=== PATIENT | male | born 1995 | race Caucasian/White ===

== ENCOUNTER 2018-07-14 21:15 | Emergency (ER) | payer OTHER, SELFPAY ==
[2018-07-14 21:18] VITALS: BP 143/81; PULSE 79; RESP 16; TEMP 36.6; O2SAT 99; BMI 31.1
--- NOTE | 2018-07-14 21:23 | ED_ITS ---
HPI - Ear Problem General Chief complaint: Ear Stated complaint: RIGHT EAR PAIN WITH JAW PAIN Time Seen by Provider: 07/14/18 21:22 Source: patient Mode of arrival: ambulatory Limitations: no limitations History of Present Illness HPI Narrative: Otherwise healthy 23-year-old male here for evaluation approximately 24-36 hr of right-sided ear pain, he states that it is ?popping? also has a sore throat and sinus congestion and also pain in the right side of his neck. No cough. No problems breathing. No skin changes. Has not tried anything for this prior to arrival Related Data Previous Rx's Medication Instructions Recorded azithromycin See Label Instructions .ROUTE 07/14/18 .COMPLEX #6 tab Allergies Allergy/AdvReac Type Severity Reaction Status Date / Time No Known Drug Allergies Allergy Verified 07/14/18 21:22 Review of Systems Constitutional Denies fever(s) and Denies headache(s) Eyes Denies change in vision ENT Ears, Nose, Mouth, and Throat: Denies dental pain, Denies vertigo, Denies dizziness, Denies ear discharge, Reports otalgia, Denies facial pain, Denies headache(s), Denies neck mass, Reports neck pain and Reports sore throat Cardiovascular Denies chest pain and Denies dyspnea Respiratory Denies dyspnea Musculoskeletal Denies myalgias, Denies arthralgias and Reports neck pain Integumentary/Breasts Denies rash Neurologic Denies vertigo, Denies dizziness and Denies headache(s) PFSH Medical History Healthy adult (Acute) Surgical History No pertinent past surgical history (Acute) Social History marital status: Smoking Status: Never smoker Exam Initial Vital Signs Initial Vital Signs: Vital Signs Temperature 97.8 F 07/14/18 21:18 Pulse Rate 79 07/14/18 21:18 Respiratory Rate 16 07/14/18 21:18 Blood Pressure 143/81 H 07/14/18 21:18 Pulse Oximetry 99 07/14/18 21:18 Const General: cooperative, healthy appearing, comfortable, well developed, well groomed and No acute distress Orientation: alert and oriented x3 HENMT Head: normal to inspection and normocephalic Ears: TM normal on the left and TM abnormal (Right) bulging, erythematous, with fluid behind the TM and with loss of landmarks Nose: external nose normal Face and sinus: sinuses nontender Mouth: oral mucosae normal, oropharynx normal, moist mucous membranes and No trismus Teeth and gingiva: dentition normal Throat: posterior oropharynx normal Neck Lymphatic: No lymphedema and No lymphadenopathy Resp Effort & Inspection: normal respiratory effort Auscultation: clear to auscultation bilaterally Cardio Rate: regular rate Rhythm: regular rhythm Skin Rashes: no rashes Neuro General: alert, awake and oriented x3 Extrem General: normal to inspection and capillary refill normal Psych Appearance: grossly normal and well kempt Course Vital Signs - 8 hr 07/14/18 21:18 Temperature 97.8 F Pulse Rate 79 Respiratory Rate 16 Blood Pressure 143/81 H Pulse Oximetry 99 Medical Decision Making MDM Narrative Medical decision making narrative: Patient nontoxic appearing. Left tympanic membrane unremarkable right. Membrane is consistent with acute otitis media. I do suspect this is related to his other upper respiratory infection like symptoms. We did discuss the importance of using decongestants. Will give a prescription for antibiotics but he was instructed to hold on this for the next 24-48 hours and only started of his symptoms do not improve or worsen. He expressed understanding and agreement this plan. Discharge Plan Departure Patient Disposition: Home Clinical Impression: Otitis media, Upper respiratory infection Discharge Date/Time: 07/14/18 21:55 Interventions: ED Discharge Assessment Last Done: 07/14/18 21:54 Instructions: Middle Ear Infection, DI for Viral Upper Respiratory Infection - - Adult Activity Restrictions/Additional Instructions: I do recommend that you start taking a decongestant such as Claritin or Riya or Zyrtec like we discussed. Also recommend you start a nasal spray such as Flonase for Nasonex. All of these you can buy [id number]. You can also take Afrin. I would recommend that you hold on taking any of the antibiotics for the next 24-48 hours to see if the decongestants do not improve your symptoms. Call your primary care doctor for a follow-up. Return to the emergency department for any new or worsening symptoms Prescriptions: New azithromycin 250 mg tablet See Label Instructions .ROUTE .COMPLEX Qty: 6 RF: 0
== END 2018-07-14 21:55 | disposition home or self-care (01) ==
LOC: ED 21:46
PROVIDERS: Emergency Provider Emergency Medicine
DX: H66.91 Otitis media, unspecified, right ear (principal); J06.9 Acute upper respiratory infection, unspecified
CPT/HCPCS: 99282

== ENCOUNTER 2018-10-11 12:48 | Emergency (ER) | payer OTHER, SELFPAY ==
[2018-10-11 13:24] VITALS: BP 138/60; PULSE 74; RESP 14; TEMP 36.8; O2SAT 100; BMI 31.1
--- NOTE | 2018-10-11 13:26 | ED_ITS ---
HPI - Abdominal Pain <BAIRON Jacobson - Last Filed: 10/11/18 21:32> General Chief Complaint: Abdominal Pain Stated Complaint: stomach pain for about 2 weeks Time Seen by Provider: 10/11/18 13:26 Source: patient Mode of arrival: ambulatory Limitations: no limitations History of Present Illness HPI narrative: 23-year-old healthy male that is a nonsmoker here for complaint of having epigastric pain for the last couple weeks. He denies any trauma to the area. He reports having increased pain to the epigastric area after eating. No nausea vomiting. Last p.o. intake was just couple hours prior to arrival. He denies any vomiting. He denies any dark tarry stools. No fevers no chills. Last bowel movement was earlier today and was unremarkable. He denies any urinary symptoms. No other concerns or complaints this timeframe. MD complaint: abdominal pain Related Data Allergies Allergy/AdvReac Type Severity Reaction Status Date / Time No Known Drug Allergies Allergy Verified 10/11/18 13:24 Review of Systems <BAIRON Jacobson - Last Filed: 10/11/18 21:32> Constitutional Denies chills, Denies fever(s), Denies lethargy and Denies weakness Eyes Denies change in vision, Denies eye discharge, Denies irritation and Denies loss of vision ENT Ears, Nose, Mouth, and Throat: Denies change in voice, Denies neck pain and Denies sore throat Cardiovascular Denies chest pain, Denies irregular heart rhythm, Denies lightheadedness, Denies palpitations, Denies dyspnea, Denies dyspnea on exertion and Denies orthopnea Respiratory Denies cough, Denies dyspnea, Denies dyspnea on exertion and Denies wheezing Gastrointestinal Comments: Epigastric Genitourinary Denies hematuria, Denies flank pain, Denies urinary incontinence and Denies urinary urgency Musculoskeletal Denies neck pain Integumentary/Breasts Denies pruritus, Denies erythema, Denies rash and Denies wounds Neurologic Denies confusion, Denies loss of vision and Denies weakness Psychiatric Denies anxiety, Denies confusion, Denies depression, Denies homicidal ideation and Denies suicidal ideation Endocrine Denies palpitations Allergic/Immunologic Denies wheezing PFSH <BAIRON Jacobson - Last Filed: 10/11/18 21:32> Medical History Healthy adult (Acute) Surgical History No pertinent past surgical history (Acute) Social History marital status: Smoking Status: Never smoker Social History marital status: Smoking Status: Never smoker Exam <BAIRON Jacobson - Last Filed: 10/11/18 21:32> Initial Vital Signs Initial Vital Signs: Vital Signs Temperature 98.2 F 10/11/18 13:24 Pulse Rate 74 10/11/18 13:24 Respiratory Rate 14 10/11/18 13:24 Blood Pressure 138/60 10/11/18 13:24 Pulse Oximetry 100 10/11/18 13:24 Const General: cooperative and well developed Nutritional Appearance: well nourished Orientation: alert, awake, oriented x3 and not confused HENMT Mouth: oral mucosae normal and moist mucous membranes Eyes Conjunctivae: conjunctivae normal Sclera: sclerae normal Pupils: PERRL EOM: EOM intact bilaterally Resp Effort & Inspection: normal respiratory effort, able to speak in complete sentences, no respiratory distress and no use of accessory muscles Auscultation: clear to auscultation bilaterally, no rales, no rhonchi and no wheezes Cardio Rate: regular rate Rhythm: regular rhythm Heart Sounds: no click, no gallops, no murmurs and no rubs Pulses: normal peripheral pulses GI Inspection: non-distended Palpation: soft, no hepatosplenomegaly, No guarding, No pulsatile mass and No tender Auscultation: normal bowel sounds General: No CVA tenderness Skin General: no rashes or lesions noted, No jaundice and No petechiae Neuro General: alert, oriented x3, gait normal and no focal motor deficits Speech: speech normal <Saul Vo DO - Last Filed: 10/12/18 20:20> Initial Vital Signs Initial Vital Signs: Vital Signs Temperature 98.2 F 10/11/18 13:24 Pulse Rate 74 10/11/18 13:24 Respiratory Rate 14 10/11/18 13:24 Blood Pressure 138/60 10/11/18 13:24 Pulse Oximetry 100 10/11/18 13:24 Course <BAIRON Jacobson - Last Filed: 10/11/18 21:32> Orders Ordered: Discontinued Medications Sodium Chloride (Normal Saline 0.9%) 1,000 mls @ 150 mls/hr IV CONT KYLE Last Admin: 10/11/18 15:03 Dose: Not Given Vital Signs - 8 hr 10/11/18 16:01 Temperature 98.6 F Pulse Rate 84 Respiratory Rate 18 Blood Pressure 137/81 Pulse Oximetry 100 <Saul Vo DO - Last Filed: 10/12/18 20:20> Orders Ordered: Discontinued Medications Sodium Chloride (Normal Saline 0.9%) 1,000 mls @ 150 mls/hr IV CONT KYLE Last Admin: 10/11/18 15:03 Dose: Not Given Vital Signs - 8 hr 10/11/18 16:01 Temperature 98.6 F Pulse Rate 84 Respiratory Rate 18 Blood Pressure 137/81 Pulse Oximetry 100 MDM - Abdominal Pain <BAIRON Jacobson - Last Filed: 10/11/18 21:32> Differential Diagnosis Differential diagnosis: Likely abdominal pain Lab Data Result diagrams: 10/11/18 14:33 10/11/18 14:33 Lab Results 10/11/18 10/11/18 Range/Units 14:33 14:33 WBC 9.4 (4.5-11.0) X10^3/uL RBC 5.20 (4.5-5.9) X10^6/uL Hgb 15.9 (13.5-17.5) g/dL Hct 45.5 (41-53) % MCV 87.6 (80-100) fL MCH 30.5 (26-34) PG MCHC 34.9 (30-36) % RDW 12.3 (11.6-14.8) % Plt Count 201 (150-400) X10^3/uL Neut % (Auto) 55.9 (50-75) % Lymph % (Auto) 35.7 (25-40) % [place] % (Auto) 6.5 (3-14) % Eos % (Auto) 1.4 L (2-4) % Baso % (Auto) 0.5 (0-2) % Neut # (Auto) 5300 (7482-5628) /uL Lymph # (Auto) 3400 (6360-7881) /uL [place] # (Auto) 600 (0-900) /uL Eos # (Auto) 100 (0-450) /uL Baso # (Auto) 0 (0-100) /uL Sodium 139 (137-145) mmol/L Potassium 4.0 (3.4-5.1) mmol/L Chloride 102 (98-107) mmol/L Carbon Dioxide 26 (22-32) mmol/L BUN 21 H (9-20) mg/dL Creatinine 0.90 (0.66-1.25) mg/dL Estimated GFR > 60.0 (>60) mL/min BUN/Creatinine Ratio 23.3 H (6-22) Glucose 95 (70-100) mg/dL Calcium 9.3 (8.4-10.2) mg/dL Total Bilirubin 0.4 (0.2-1.3) mg/dL AST 23 (17-59) IU/L ALT 24 (21-72) IU/L Alkaline Phosphatase 81 (38-126) U/L Total Protein 8.4 H (6.3-8.2) g/dL Albumin 4.6 (3.5-5.0) g/dL Globulin 3.8 (1.7-4.1) g/dL Albumin/Globulin Ratio 1.2 (1.0-2.8) Lipase 803 H (23-300) U/L Imaging Data US - abdomen: Radiologist's impression: [address] [address] Ultrasound Report Signed Patient: BRIAN BRYSON II WMR#: [id number] : 1995Acct:[id number] Age/Sex: 23 / MDate of Service: 10/11/18 Loc: ED Accession Number: [id number] Procedure: US abdomen complete Ordering Provider: Julian Barcenas PROCEDURE: US ABDOMEN COMPLETE INDICATIONS: EPIGASTRIC PAIN TECHNIQUE: Real-time scanning was performed of the abdominal and retroperitoneal organs, with image documentation. COMPARISON: None. FINDINGS: Liver: Liver is normal in size and homogeneous in echotexture. Gallbladder: Gallbladder appears contracted, no inflammation or calculus found. Biliary ducts: Intrahepatic bile ducts are non-dilated. Extrahepatic bile duct caliber measures 5.1 mm. Normal is 6-7 mm or less in diameter, or 10 mm or less post-cholecystectomy. Pancreas: Not seen due to bowel gas Spleen: Spleen is enlarged in size at 14.0 cm craniocaudad length with overall a mild enlarged splenic volume of 186 cc, and homogeneous in echotexture. Kidneys: Kidneys are normal in size and echotexture. Right kidney measures 10.7 cm long; left kidney measures 11.5 cm long. No hydronephrosis or nephrolithiasis. No solid masses. Aorta: Visualized aorta is normal in caliber at less than 3 cm. Iliacs: Proximal common iliac arteries are normal in caliber at less than 2.5 cm. IVC: Intrahepatic inferior vena cava is patent. Miscellaneous: No free abdominal fluid. IMPRESSION: Contracted gallbladder, no gallbladder wall thickening or stones seen, and no biliary distention is found. Splenic volume is mildly enlarged, craniocaudad length the spleen is 14 cm in the upper limits of normal is considered 13 cm. Nonvisualization of the pancreas due to bowel gas. Depending on clinical status followup by CT scanning may be warranted. Dictated by: Hiren Horn M.D. on 10/11/2018 at 14:55 Approved by: Hiren Horn M.D. on 10/11/2018 at 15:11 MDM Narrative Medical decision making narrative: Abdominal ultrasound was obtained which shows unremarkable gallbladder with no biliary distention seen. Mildly elevated spleen is seen no other acute findings. CBC and Chem panel were obtained and were unremarkable. Lipase was elevated at 800 indicating pancreatitis. Patient states he only drinks 1-2 beers every couple of weeks. He is tolerating p.o. intake well. Pain is mild at at 2 as of right now. Patient is comfortable going home and hydrating himself. Mild pancreatitis that will treat conservatively at home with clear liquid diet for the next 3 days. He is to follow up with primary care provider in the next day or 2 for re-evaluation. [id number] Tylenol or ibuprofen as needed for any discomfort. For any worsening symptoms return to the emergency room. <Saul Vo, - Last Filed: 10/12/18 20:20> Lab Data Lab Results 10/11/18 10/11/18 Range/Units 14:33 14:33 WBC 9.4 (4.5-11.0) X10^3/uL RBC 5.20 (4.5-5.9) X10^6/uL Hgb 15.9 (13.5-17.5) g/dL Hct 45.5 (41-53) % MCV 87.6 (80-100) fL MCH 30.5 (26-34) PG MCHC 34.9 (30-36) % RDW 12.3 (11.6-14.8) % Plt Count 201 (150-400) X10^3/uL Neut % (Auto) 55.9 (50-75) % Lymph % (Auto) 35.7 (25-40) % [place] % (Auto) 6.5 (3-14) % Eos % (Auto) 1.4 L (2-4) % Baso % (Auto) 0.5 (0-2) % Neut # (Auto) 5300 (1495-7345) /uL Lymph # (Auto) 3400 (0413-3015) /uL [place] # (Auto) 600 (0-900) /uL Eos # (Auto) 100 (0-450) /uL Baso # (Auto) 0 (0-100) /uL Sodium 139 (137-145) mmol/L Potassium 4.0 (3.4-5.1) mmol/L Chloride 102 (98-107) mmol/L Carbon Dioxide 26 (22-32) mmol/L BUN 21 H (9-20) mg/dL Creatinine 0.90 (0.66-1.25) mg/dL Estimated GFR > 60.0 (>60) mL/min BUN/Creatinine Ratio 23.3 H (6-22) Glucose 95 (70-100) mg/dL Calcium 9.3 (8.4-10.2) mg/dL Total Bilirubin 0.4 (0.2-1.3) mg/dL AST 23 (17-59) IU/L ALT 24 (21-72) IU/L Alkaline Phosphatase 81 (38-126) U/L Total Protein 8.4 H (6.3-8.2) g/dL Albumin 4.6 (3.5-5.0) g/dL Globulin 3.8 (1.7-4.1) g/dL Albumin/Globulin Ratio 1.2 (1.0-2.8) Lipase 803 H (23-300) U/L Discharge Plan Departure Patient Disposition: Home Clinical Impression: Pancreatitis Qualifiers: Chronicity: acute Pancreatitis type: idiopathic Acute pancreatitis complication: unspecified Qualified Code(s): K85.00 - Idiopathic acute pancreatitis without necrosis or infection Discharge Date/Time: 10/11/18 16:02 Interventions: ED Discharge Assessment Last Done: 10/11/18 16:01 Instructions: Acute Pancreatitis, DI for Pancreatitis Activity Restrictions/Additional Instructions: Ultrasound was obtained and shows normal gallbladder. Ultrasound does show that the spleen is mildly elevated. Otherwise ultrasound was unremarkable. Laboratory results show indicated lipase which indicates acute pancreatitis. Clear liquid diet here for the next 3 days. Follow up with her primary care provider in the next day or 2 for re-evaluation. After symptoms resolve recomme nd a follow-up ultrasound due to mildly enlarged spleen to ensure things are stable. If any worsening symptoms unable to tolerate fluids fever or worsening abdominal pain return to the emergency room. Use [id number] Tylenol or Motrin as needed for any discomfort. Referrals: [facility] [Provider Group] Stand Alone Forms: Work Release Note <Saul Vo DO - Last Filed: 10/12/18 20:20> Cosign ED Attending Cosignature Attestation: I was available for consultation during this patient's emergency department encounter
--- NOTE | 2018-10-11 13:58 | DI.US.S_ITS ---
PROCEDURE: US ABDOMEN COMPLETE INDICATIONS: EPIGASTRIC PAIN TECHNIQUE: Real-time scanning was performed of the abdominal and retroperitoneal organs, with image documentation. COMPARISON: None. FINDINGS: Liver: Liver is normal in size and homogeneous in echotexture. Gallbladder: Gallbladder appears contracted, no inflammation or calculus found. Biliary ducts: Intrahepatic bile ducts are non-dilated. Extrahepatic bile duct caliber measures 5.1 mm. Normal is 6-7 mm or less in diameter, or 10 mm or less post-cholecystectomy. Pancreas: Not seen due to bowel gas Spleen: Spleen is enlarged in size at 14.0 cm craniocaudad length with overall a mild enlarged splenic volume of 186 cc, and homogeneous in echotexture. Kidneys: Kidneys are normal in size and echotexture. Right kidney measures 10.7 cm long; left kidney measures 11.5 cm long. No hydronephrosis or nephrolithiasis. No solid masses. Aorta: Visualized aorta is normal in caliber at less than 3 cm. Iliacs: Proximal common iliac arteries are normal in caliber at less than 2.5 cm. IVC: Intrahepatic inferior vena cava is patent. Miscellaneous: No free abdominal fluid. IMPRESSION: Contracted gallbladder, no gallbladder wall thickening or stones seen, and no biliary distention is found. Splenic volume is mildly enlarged, craniocaudad length the spleen is 14 cm in the upper limits of normal is considered 13 cm. Nonvisualization of the pancreas due to bowel gas. Depending on clinical status followup by CT scanning may be warranted. Dictated by: Hiren Horn M.D. on 10/11/2018 at 14:55 Approved by: Hiren Horn M.D. on 10/11/2018 at 15:11
[2018-10-11 14:50] LABS: Add Manual Diff / Slide Review NO; Basophils Absolute Auto 0 /uL (0-100); Basophils Percent Auto 0.5 % (0-2); Eosinophils Absolute Auto 100 /uL (0-450); Eosinophils Percent Auto 1.4 % (2-4); Hematocrit 45.5 % (41-53); Hemoglobin 15.9 g/dL (13.5-17.5); Lymphocytes Absolute Auto 3400 /uL (1100-4500); Lymphocytes Percent Auto 35.7 % (25-40); Mean Corpuscular HGB Conc 34.9 % (30-36); Mean Corpuscular Hemoglobin 30.5 PG (26-34); Mean Corpuscular Volume 87.6 fL (80-100); Monocytes Absolute Auto 600 /uL (0-900); Monocytes Percent Auto 6.5 % (3-14); Neutrophils Absolute Auto 5300 /uL (1500-7000); Neutrophils Percent Auto 55.9 % (50-75); Platelet Count 201 X10^3/uL (150-400); Red Cell Distribution Width 12.3 % (11.6-14.8); White Blood Cell Count 9.4 X10^3/uL (4.5-11.0)
[2018-10-11 14:57] LABS: Alanine Aminotransferase 24 IU/L (21-72); Albumin 4.6 g/dL (3.5-5.0); Albumin Globulin Ratio 1.2 (1.0-2.8); Alkaline Phosphatase 81 U/L (38-126); Aspartate Aminotransferase 23 IU/L (17-59); BUN Creatinine Ratio 23.3 (6-22); Bilirubin Total 0.4 mg/dL (0.2-1.3); Blood Urea Nitrogen 21 mg/dL (9-20); Calcium 9.3 mg/dL (8.4-10.2); Carbon Dioxide 26 mmol/L (22-32); Chloride 102 mmol/L (98-107); Estimated Glomerular Filt Rate > 60.0 mL/min (>60); Globulin 3.8 g/dL (1.7-4.1); Glucose 95 mg/dL (70-100); HEMOLYSIS 18 (0-50); Lipase 803 U/L (23-300); Sodium 139 mmol/L (137-145); Total Protein 8.4 g/dL (6.3-8.2)
[2018-10-11 16:01] VITALS: BP 137/81; PULSE 84; RESP 18; TEMP 37; O2SAT 100
== END 2018-10-11 16:02 | disposition home or self-care (01) ==
PROVIDERS: Emergency Provider Nurse Practitioner Family
DX: K85.00 Idiopathic acute pancreatitis without necrosis or infection (principal)
CPT/HCPCS: 36591; 76700; 80053; 83690; 85025; 99282; 99284

== ENCOUNTER 2018-10-24 15:00 | Emergency (ER) | payer OTHER, SELFPAY ==
[2018-10-24 15:12] VITALS: BP 140/80; PULSE 98; RESP 14; TEMP 37.2; O2SAT 99
--- NOTE | 2018-10-24 18:05 | ED.ABDPAIN ---
HPI - Abdominal Pain General Chief Complaint: Abdominal Pain Stated Complaint: PANCREATITIS PAIN Time Seen by Provider: 10/24/18 18:05 Source: patient Mode of arrival: ambulatory Limitations: no limitations History of Present Illness HPI narrative: Patient is otherwise healthy 23-year-old male here for evaluation of abdominal pain. Patient was seen here in this emergency department several days ago. Was diagnosed with pancreatitis. Was sent home with instructions for a clear liquid diet. Followed up with his primary doctor. He states that he was able to advance his diet and was essentially symptom free. A couple days ago he started to have return of the upper abdominal pain. He states that it feels like this is the pancreatitis again. He did state that he had 1 beer prior to this episode. He states that the pain is not intolerable. No vomiting. Was told to come to the emergency department if his symptoms worsen. Related Data Previous Rx's Medication Instructions Recorded hydrocodone-acetaminophen [Perry] 1 tab PO Q4-6H PRN #10 tab 10/24/18 ondansetron 4 mg PO Q6-8H PRN #10 tab 10/24/18 ranitidine HCl [Zantac] 150 mg PO DAILY #30 tab 10/24/18 Allergies Allergy/AdvReac Type Severity Reaction Status Date / Time No Known Drug Allergies Allergy Verified 10/11/18 13:24 Review of Systems Constitutional Denies fever(s) and Denies headache(s) ENT Ears, Nose, Mouth, and Throat: Denies headache(s) Cardiovascular Denies chest pain and Denies dyspnea Respiratory Denies dyspnea Gastrointestinal Gastrointestinal: Reports abdominal pain, Denies change in stool character, Denies diarrhea, Denies nausea and Denies vomiting Genitourinary Denies dysuria Musculoskeletal Denies myalgias and Denies arthralgias Integumentary/Breasts Denies rash Neurologic Denies headache(s) Hematologic/Lymphatic Denies easy bleeding and Denies easy bruising [facility] Social History marital status: Smoking Status: Former smoker Exam Initial Vital Signs Initial Vital Signs: Vital Signs Temperature 99.0 F 10/24/18 15:12 Pulse Rate 98 H 10/24/18 15:12 Respiratory Rate 14 10/24/18 15:12 Blood Pressure 140/80 10/24/18 15:12 Pulse Oximetry 99 10/24/18 15:12 Const General: cooperative, comfortable, well developed, well groomed and No acute distress Orientation: alert, awake and oriented x3 HENMT Head: normal to inspection and normocephalic Resp Effort & Inspection: normal respiratory effort Cardio Rate: regular rate GI Inspection: non-distended Palpation: soft, No firm and tender ( Left upper quadrant) Skin Lesions: no lesions Rashes: no rashes Neuro General: alert, awake and oriented x3 Extrem General: normal to inspection Right upper extremity: normal to inspection Psych Appearance: grossly normal and well kempt Course Orders Ordered: Discontinued Medications Sodium Chloride (Normal Saline 0.9%) 1,000 mls @ 1,000 mls/hr IV BOLUS ONE Stop: 10/24/18 19:05 Last Infusion: 10/24/18 19:10 Dose: 0 mls/hr Admin: 10/24/18 18:20 Dose: 1,000 mls/hr Vital Signs - 8 hr 10/24/18 15:12 Temperature 99.0 F Pulse Rate 98 H Respiratory Rate 14 Blood Pressure 140/80 Pulse Oximetry 99 MDM - Abdominal Pain Lab Data Attestation: I reviewed the patient's lab results. Result diagrams: 10/24/18 18:10 10/24/18 18:10 Lab Results 10/24/18 10/24/18 Range/Units 18:10 18:10 WBC 9.6 (4.5-11.0) X10^3/uL RBC 5.37 (4.5-5.9) X10^6/uL Hgb 15.8 (13.5-17.5) g/dL Hct 46.6 (41-53) % MCV 86.7 (80-100) fL MCH 29.4 (26-34) PG MCHC 33.9 (30-36) % RDW 12.0 (11.6-14.8) % Plt Count 208 (150-400) X10^3/uL Neut % (Auto) 57.2 (50-75) % Lymph % (Auto) 34.8 (25-40) % [place] % (Auto) 6.2 (3-14) % Eos % (Auto) 1.1 L (2-4) % Baso % (Auto) 0.7 (0-2) % Neut # (Auto) 5500 (4166-1319) /uL Lymph # (Auto) 3300 (2656-9899) /uL [place] # (Auto) 600 (0-900) /uL Eos # (Auto) 100 (0-450) /uL Baso # (Auto) 100 (0-100) /uL Sodium 138 (137-145) mmol/L Potassium 3.7 (3.4-5.1) mmol/L Chloride 100 (98-107) mmol/L Carbon Dioxide 23 (22-32) mmol/L BUN 10 (9-20) mg/dL Creatinine 0.90 (0.66-1.25) mg/dL Estimated GFR > 60.0 (>60) mL/min BUN/Creatinine Ratio 11.1 (6-22) Glucose 74 (70-100) mg/dL Calcium 9.6 (8.4-10.2) mg/dL Total Bilirubin 0.7 (0.2-1.3) mg/dL AST 23 (17-59) IU/L ALT 27 (21-72) IU/L Alkaline Phosphatase 102 (38-126) U/L Total Protein 8.8 H (6.3-8.2) g/dL Albumin 4.7 (3.5-5.0) g/dL Globulin 4.1 (1.7-4.1) g/dL Albumin/Globulin Ratio 1.1 (1.0-2.8) Lipase 1018 H (23-300) U/L Point of care testing: Urine Dip Bedside Urine Glucose Negative Bedside Urine Bilirubin - Negative Bedside Urine Ketone ++ 40 Urine Specific [place] 1.015 Bedside Urine Occult Blood - Negative Bedside Urine pH 6.0 Bedside Urine Protein - Negative Bedside Urine Urobilinogen - Negative Bedside Urine Nitrite - Negative Bedside Urine Leukocytes - Negative Esterase MDM Narrative Medical decision making narrative: patient's lipase today is elevated. This is consistent with his symptoms and is concerning for pancreatitis. Patient is not febrile. Has a benign abdominal exam. Is not having any nausea or vomiting. He states that his pain is not intolerable. Unsure as the exact cause of his recurrent pancreatitis. Unsure if this is a continuation from his 1st diagnosis or a recurrence of the symptoms. He denies excessive alcohol intake. Had a right upper quadrant ultrasound during his last visit here which was unremarkable. No recent travel. We did discuss his diagnosis. I feel that a trial of home treatment to include clear fluids and pain control is not unreasonable in his case. The patient agrees with this. Informed him he needed to contact his primary doctor to discuss a referral to see Gastroenterology. He was given strict return precautions. Was given pain medication and nausea medication patient expressed understanding and agreement. 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 like the last time you were seen start with a clear liquid diet and then as your symptoms improve slowly advanced your diet. return to the emergency department for any fevers, inability to tolerate oral intake, worsening pain, or any other concerning symptoms. Prescriptions: New hydrocodone-acetaminophen [Perry] 5-325 mg tablet 1 tab PO Q4-6H PRN (Reason: pain) Qty: 10 RF: 0 ranitidine HCl [Zantac] 150 mg tablet 150 mg PO DAILY Qty: 30 RF: 0 ondansetron 4 mg tablet,disintegrating 4 mg PO Q6-8H PRN (Reason: nausea and vomiting) Qty: 10 RF: 0
[2018-10-24 18:18] VITALS: BP 134/75; PULSE 83; RESP 15; TEMP 37.1; O2SAT 99
[2018-10-24] MEDS: SODIUM CHLORIDE 0.9% 1,000 ML 1000 ML IV (18:20)
[2018-10-24 18:22] LABS: Add Manual Diff / Slide Review NO; Basophils Absolute Auto 100 /uL (0-100); Basophils Percent Auto 0.7 % (0-2); Eosinophils Absolute Auto 100 /uL (0-450); Eosinophils Percent Auto 1.1 % (2-4); Hematocrit 46.6 % (41-53); Hemoglobin 15.8 g/dL (13.5-17.5); Lymphocytes Absolute Auto 3300 /uL (1100-4500); Lymphocytes Percent Auto 34.8 % (25-40); Mean Corpuscular HGB Conc 33.9 % (30-36); Mean Corpuscular Hemoglobin 29.4 PG (26-34); Mean Corpuscular Volume 86.7 fL (80-100); Monocytes Absolute Auto 600 /uL (0-900); Monocytes Percent Auto 6.2 % (3-14); Neutrophils Absolute Auto 5500 /uL (1500-7000); Neutrophils Percent Auto 57.2 % (50-75); Platelet Count 208 X10^3/uL (150-400); Red Blood Cell Count 5.37 X10^6/uL (4.5-5.9); White Blood Cell Count 9.6 X10^3/uL (4.5-11.0)
[2018-10-24 18:32] LABS: Alanine Aminotransferase 27 IU/L (21-72); Albumin 4.7 g/dL (3.5-5.0); Albumin Globulin Ratio 1.1 (1.0-2.8); Alkaline Phosphatase 102 U/L (38-126); Aspartate Aminotransferase 23 IU/L (17-59); BUN Creatinine Ratio 11.1 (6-22); Bilirubin Total 0.7 mg/dL (0.2-1.3); Blood Urea Nitrogen 10 mg/dL (9-20); Calcium 9.6 mg/dL (8.4-10.2); Carbon Dioxide 23 mmol/L (22-32); Chloride 100 mmol/L (98-107); Estimated Glomerular Filt Rate > 60.0 mL/min (>60); Globulin 4.1 g/dL (1.7-4.1); Glucose 74 mg/dL (70-100); HEMOLYSIS < 15 (0-50); Lipase 1018 U/L (23-300); Potassium 3.7 mmol/L (3.4-5.1); Sodium 138 mmol/L (137-145); Total Protein 8.8 g/dL (6.3-8.2)
== END 2018-10-24 19:05 | disposition home or self-care (01) ==
PROVIDERS: Nurse Practitioner Family; Emergency Provider Emergency Medicine
DX: K85.90 Acute pancreatitis without necrosis or infection, unspecified (principal)
CPT/HCPCS: 36591; 80053; 81003; 83690; 85025; 96360; 99283; 99284

== ENCOUNTER → 2019-10-24 17:03 | Outpatient (CLI) | payer OTHER, SELFPAY ==
--- NOTE | 2019-10-24 | DI.MRI.S_ITS ---
PROCEDURE: MR ABDOMEN WO/W CON INDICATIONS: Acute pancreatitis without necrosis or infection TECHNIQUE: Coronal HASTE, axial 2D FLASH in- and [id number]; axial breath-hold T2 FSE with fat saturation from the hepatic dome to the iliac crests. Oblique coronal thin-slice and radial thick slab HASTE through the biliary system. Dynamic axial VIBE during administration of contrast. Post-contrast coronal VIBE or 2D FLASH with fat saturation from the hepatic dome to the iliac crests. Optional diffusion weighted imaging and ADC may be performed. COMPARISON: None. FINDINGS: Image quality: Excellent. Pancreas and biliary system: The pancreas is normal in signal characteristics and enhancement. No surrounding edema or fluid collection. No pancreatic ductal dilatation. No pancreatic mass. No intrahepatic or extrahepatic biliary ductal dilatation. Solid organs: Liver is normal in size and enhancement. No significant steatosis. Gallbladder is unremarkable. Spleen is enlarged measuring up to 14.6 cm in craniocaudal dimension, (/). The spleen is long and skinny. No adrenal nodules. Kidneys are normal in size and enhancement, without hydronephrosis. Nodes and vessels: No retroperitoneal or mesenteric adenopathy by size criteria. Aorta and inferior vena cava are normal in size. Bowel and peritoneum: Unenhanced bowel loops are normal in caliber throughout. No free fluid. Lung bases: No basal pleural effusions. Heart size is normal. Bones and soft tissues: No ventral hernias. Bone marrow is normal in overall signal. IMPRESSION: 1. No imaging findings of acute pancreatitis. Pancreas enhances uniformly. No peripancreatic fluid collection. 2. No biliary or pancreatic ductal dilatation. 3. No gallstones. 4. Mild splenomegaly. Followup CT abdomen pelvis with IV contrast may be helpful if symptoms persist or if lipase increases. Dictated by: Felice York M.D. on 10/25/2019 at 8:50 Approved by: Felice York M.D. on 10/25/2019 at 9:12
== END ==
PROVIDERS: Referring Provider Internal Medicine Gastroenterology; Visit Provider Internal Medicine Gastroenterology
DX: K85.90 Acute pancreatitis without necrosis or infection, unspecified (principal); R16.1 Splenomegaly, not elsewhere classified
CPT/HCPCS: 74183; A9579